=== PATIENT | male | born 1980 | race Caucasian/White ===

== ENCOUNTER 2020-06-21 09:23 | Emergency (ER) | payer OTHER ==
--- NOTE | 2020-06-21 10:55 | ER Document Report ---
ED Medical Screen (RME) - General Stated Complaint: GROIN PAIN Time Seen by Provider: 06/21/20 10:46 Notes: HPI: 39-year-old male who had a vasectomy with [facility] on Tuesday presenting for increased pain and swelling of the left testicle. Was concerned there might be an infection or other problem. No difficulty urinating PHYSICAL EXAMINATION: Limited exam in triage circumcised male. There is a wound area to the left proximal aspect of the scrotum that is very tender to palpation no definitive induration. The left testicle is mildly tender to palpation as well does not appear to be retracted I have greeted and performed a rapid initial assessment of this patient. A comprehensive ED assessment and evaluation of the patient, analysis of test results and completion of medical decision making process will be conducted by an additional ED providers. - Related Data Allergies/Adverse Reactions: No Known Allergies Allergy (Verified 06/21/20 10:40) Physical Exam - Vital signs Vitals: Temp Pulse Resp BP Pulse Ox 98.9 F 87 18 122/70 98 06/21/20 09:27 06/21/20 09:27 06/21/20 09:27 06/21/20 09:27 06/21/20 09:27 Course - Vital Signs Vital signs: Temp Pulse Resp BP Pulse Ox 98.9 F 87 18 122/70 98 06/21/20 09:27 06/21/20 09:27 06/21/20 09:27 06/21/20 09:27 06/21/20 09:27
[2020-06-21 11:31] LABS: APPEARANCE,URINE CLEAR; BILIRUBIN,URINE NEGATIVE (NEGATIVE); COLOR,URINE YELLOW; GLUCOSE, URINE NEGATIVE (NEGATIVE); KETONES,URINE NEGATIVE (NEGATIVE); LEUKOCYTE ESTERASE,URINE NEGATIVE (NEGATIVE); NITRITE,URINE NEGATIVE (NEGATIVE); PROTEIN,URINE NEGATIVE (NEGATIVE); URINE SPECIFIC GRAVITY 1.021
--- NOTE | 2020-06-21 12:27 | RADIOLOGY REPORT (SQ) ---
EXAM DESCRIPTION: U/S SCROTUM W/DOPPLER IMAGES COMPLETED DATE/TIME: 06/21/2020 12:08 pm REASON FOR STUDY: recent vasectomy increased pain/swelling on left COMPARISON: None. TECHNIQUE: Static and realtime dumas scale imaging of the scrotum and testes. Selected color Doppler and spectral images recorded to document blood flow. LIMITATIONS: None. FINDINGS: RIGHT: TESTICLE: Normal size. Normal echotexture. Normal blood flow. No mass. EPIDIDYMIS: Normal apart from a 0.5 cm epididymal head cyst. HYDROCELE OR VARICOCELE: No. HERNIA OR EXTRA-TESTICULAR MASS: No. OTHER: No other significant finding. LEFT: TESTICLE: Normal size. Normal echotexture. Normal blood flow. No mass. EPIDIDYMIS: Normal apart from a 0.7 cm epididymal head cyst. HYDROCELE OR VARICOCELE: Small hydrocele. HERNIA OR EXTRA-TESTICULAR MASS: No. OTHER: No other significant finding. IMPRESSION: Normal sonographic appearance of the testicles without evidence for testicular mass or t orsion. Small left hydrocele. TECHNICAL DOCUMENTATION: JOB ID: [id number] [employer]- All Rights Reserved Reading location - IP/workstation name: [email or web address]
[2020-06-21 13:16] VITALS: BP 129/72
--- NOTE | 2020-06-21 15:52 | ER Document Report ---
Entered by JB SALGUERO SCRIBE 06/21/20 1303 Acting as scribe for:ERNESTINA REYNA MD ED GI/ - General Chief Complaint: Groin Pain Stated Complaint: GROIN PAIN Time Seen by Provider: 06/21/20 10:46 Information source: Patient Notes: This 39 year old male patient presents to the emergency department today with complaints of left testicular pain. Patient had a vasectomy performed at [facility] on 06/16 and two days later he developed left testicle pain. Patient states the pain hasn't gotten any worse but also hasn't gotten any better. Patient denies penile discharge. - Related Data Allergies/Adverse Reactions: No Known Allergies Allergy (Verified 06/21/20 10:40) Past Medical History - General Information source: Patient - Social History Smoking Status: Never Smoker Cigarette use (# per day): No Frequency of alcohol use: None Drug Abuse: None Family History: Reviewed & Not Pertinent Patient has homicidal ideation: No Psychiatric Medical History: Reports: Hx Anxiety, Hx Post Traumatic Stress Disorder Past Surgical History: Reports: Hx Genitourinary Surgery - vasectomy Review of Systems - Review of Systems Constitutional: No symptoms reported EENT: No symptoms reported Cardiovascular: No symptoms reported Respiratory: No symptoms reported Gastrointestinal: No symptoms reported Genitourinary: No symptoms reported Male Genitourinary: See HPI, Testicular pain - left Musculoskeletal: No symptoms reported Skin: No symptoms reported Hematologic/Lymphatic: No symptoms reported Neurological/Psychological: No symptoms reported -: Yes All other systems reviewed and negative Physical Exam - Vital signs Vitals: Temp Pulse Resp BP Pulse Ox 98.9 F 87 18 122/70 98 06/21/20 09:27 06/21/20 09:27 06/21/20 09:27 06/21/20 09:27 06/21/20 09:27 - General General appearance: Appears well, Alert, Other - Patient is a little uncomfortable from his testicular pain. - HEENT Head: Normocephalic, Atraumatic Eyes: Normal Pupils: PERRL - Respiratory Respiratory status: No respiratory distress - Cardiovascular Rhythm: Regular - Abdominal Inspection: Normal - Genitourinary Tenderness: Testicle tender - The right testicle is not tender. The left testicle is exquisitely tender.. No: Epididymis tender - The epididymis on either side is not tender. Scrotum: Other - There is some ecchymosis in the upper anterolateral scrotum on either side secondary to the surgical procedure. There is no scrotal edema or erythema. - Back Back: Normal - Extremities General upper extremity: Normal inspection General lower extremity: Normal inspection - Neurological Neuro grossly intact: Yes - Psychological Associated symptoms: Normal affect, Normal mood - Skin Skin Temperature: Warm Skin Moisture: Dry Skin Color: Normal Course - Vital Signs Vital signs: Temp Pulse Resp BP Pulse Ox 97.9 F 70 16 129/72 H 100 06/21/20 13:15 06/21/20 13:15 06/21/20 13:15 06/21/20 13:15 06/21/20 13:15 - Laboratory Laboratory results interpreted by me: 06/21/20 11:20 Urine Blood SMALL H Urine Urobilinogen 2.0 H - Diagnostic Test Radiology reviewed: Reports reviewed - Scrotal ultrasound shows normal blood flow into both testicles. Bilateral epididymal head cysts. A small left hydrocele. No other abnormalities. Discharge - Discharge Clinical Impression: Left testicular pain Condition: Stable Disposition: HOME, SELF-CARE Additional Instructions: No clear explanation for your left testicular pain is identified at this time. As the pain is located in the testicle, and not the epididymis where the surgical procedure was actually performed, we will treat you with antibiotics in case you are developing an orchitis post surgery. The ultrasound showed a small left hydrocele, and bilateral epididymal head cysts. Blood flow into the testicle was normal on both sides. Take the medications as prescribed. You are advised against the long drive you are planning. Follow-up with your urologist if not improving. RETURN TO THE EMERGENCY ROOM IF ANY NEW OR WORSENING SYMPTOMS. Prescriptions: Doxycycline Hyclate 100 mg PO BID #20 tablet. Hydrocodone/Acetaminophen [Eugene 5-325 mg Tablet] 1 tab PO ASDIR PRN #12 tablet PRN Reason: For Pain I personally performed the services described in the documentation, reviewed and edited the documentation which was dictated to the scribe in my presence, and it accurately records my words and actions.
== END 2020-06-21 13:18 | disposition home or self-care (01) ==
LOC: ER 09:23
DX: N50.812 Left testicular pain (principal); Z98.52 Vasectomy status
CPT/HCPCS: 76870; 81001; 93976; 99284